=== PATIENT | female | born 1940 | race Caucasian/White ===

== ENCOUNTER 2025-07-07 06:23 | Day surgery (SDC) | payer MEDICARE ==
[2025-07-04 15:10] VITALS: BP 133/75; PULSE 130; RESP 17; TEMP 97.9
[2025-07-04 15:10] LABS: IMMATURE GRANULOCYTE ABSOLUTE 0.01 K/uL (0-1); NUCLEATED RED BLOOD CELLS 0.0 % (0.0-0.19); PLATELET COUNT (AUTO) 238 K/uL (130-400); RED BLOOD CELL COUNT(AUTO) 4.29 MIL/uL (4.00-5.50); RED CELL DISTRIBUTION WIDTH 13.2 % (11.0-15.5); WHITE BLOOD COUNT (AUTO) 6.1 K/uL (4.8-10.8)
[2025-07-04 15:18] LABS: CREATININE 0.9 mg/dL (0.5-1.0); GLOMERULAR FILTR. RATE CALC 63.0 mL/min (>90); GLUCOSE,RANDOM 131.0 mg/dL (70-105); SODIUM SERUM 144.0 mmol/L (136-145); UREA NITROGEN, BLOOD 14.0 mg/dL (7-18)
[2025-07-04 15:20] LABS: INR 1.01 (0.85-1.15)
[2025-07-07] VITALS (16 sets, daily range): BP systolic 105–131; BP diastolic 55–85; PULSE 117–135; RESP 14–22; TEMP 97.1–97.2
[~2025-07-07] VITALS: Ht 160 cm; Wt 70.3 kg
[~2025-07-07 06:23] MED LIST: ALEN70TA80 PO; ASCO500C19 PO; ASPI-1146 PO; B6/F1CAP PO; LIRA0.6P SQ; LISI20TA24 PO; MAGN400C PO; MULT-660 PO; UBID200C18 PO; VERA120T92 PO; VIT1CAPS5 PO
[2025-07-07] MEDS: 0.9%NACL 1000ML 1,000 ML IV SCH (07:06)
--- NOTE | 2025-07-07 07:55 | NUR ---
DENIZ: O2 @ 6L/NC. LIDOCAINE VISCOUS 2% PO GIVEN PER ORDERS. TIME OUT DONE @ 07:59 AM WITH NO PROBLEMS. VERSED 2 MG IV AND FENTANYL 25MCG IV GIVEN FOR SEDATION ORDERED. SCOPE INSERTED AT 08:04 WITH NO DIFFICULTY. COMPLETED AT 08:08 AM. PT TOLERATED PROCEDURE WELL. DR MCKAY OUT OF ROOM AT 08:20 AM.
[2025-07-07] MEDS: LIDOCAINE HCL 2% VISCOUS 15 ML UDCUP PO ONE (08:21)
[2025-07-07] MEDS: MIDAZOLAM HCL 1 MG/ML 2ML VIAL IVP ONE (08:21)
--- NOTE | 2025-07-07 08:26 | PRN ---
Transesophageal ECHO procedure note July 07/2025 Preprocedure diagnosis atrial flutter with two-to-one conduction Postprocedure diagnosis atrial flutter with two-to-one conduction thrombus in the left atrial appendage After informed consent the patient received 2 mg of Versed and 25 mg of fentanyl to achieve adequate level of conscious sedation. She had continuous O2 saturati on monitoring noninvasive heart rate rhythm and blood pressure monitoring throughout the procedure. The scope was passed without difficulty in the heart was imaged in multiple planes. Patient has thrombus present in the left atrial appendage. smoke was noted in the left atrium consistent with prothrombotic state. The mitral valve appears normal there was mild moderate +mitral regurgitation. The tricuspid valve is a trileaflet valve and opens well. There was no evidence of aortic insufficiency. The intra-atrial septum appears intact by Doppler exam. The tricuspid valve appears normal. The pulmonic valve leaflets appear thickened. The descending aorta shows some calcification consistent with atherosclerosis but no ulcerated or mobile plaques. There was no pericardial effusion. Postprocedure orders given. The entire procedure was well tolerated without complications. Report dictated by BHARATH Vyas MD, MD Jul 07, 2025 08:26
[2025-07-07] MEDS ORDERED: VERA180T61 PO (08:28)
--- NOTE | 2025-07-07 08:34 | HMCSR ---
APPROVED REPORT EXAM: Transesophageal echocardiogram with color flow Doppler. INDICATION ICD: Atrial Fibrillation Reason For Test : Rule out Intracardiac Thrombus. PROCEDURE After obtaining informed consent, patient underwent transesophageal echo in the day pt 15. 15 mL 2% Viscous Lidocaine was given as a topical anesthetic prior to the administration of the consc ious sedation. Type of Sedation: Please refer to medication administration record. Sedation was administered by Archana KELLEY . Sedation was achieved with Please refer to medication administration record. intravenously. Transesophageal probe was inserted and advanced into esophagus without difficulty by James Liang MD . DENIZ was performed and images were obtained, probe was removed without complications. Throughout the procedure, the blood pressure, pulse oximetry, cardiac rhythm, and rate were monitored . Left Ventricle The left ventricle is normal size. Mild concentric left ventricular hypertrophy. LVEF is 50-55%. The left ventricular diastolic function is Indeterminate Right Ventricle The right ventricle is normal size. The right ventricular systolic function is normal. Atria The left atrium size is mildly dilated. Left atrial appendage thrombus noted. Spontaneous contrast in left atrium. No evidence of PFO/ASD by color Doppler. The right atrium size is normal. Aortic Valve Aortic valve is trileaflet, milldy thickened and opens well. Trace of aortic regurgitation is present . There is no aortic valvular stenosis. Mitral Valve The mitral valve is normal in structure. There is mild mitral valve regurgitation noted. There is no mitral valve stenosis. Tricuspid Valve The tricuspid valve opens well. There is no tricuspid valve regurgitation noted. Pulmonic Valve Pulmonic valve is not well visualized but appears mildly thickened. There is no pulmonic valvular reg urgitation. Great Vessels The aortic root is normal in size. Ascending aorta appears normal in size. Descending aorta appears n ormal in size Pericardium There is no pericardial effusion. Conclusion Mild concentric left ventricular hypertrophy. LVEF is 50-55%. No evidence of PFO/ASD by color Doppler. The left atrium size is mildly dilated. Left atrial appendage thrombus noted. Spontaneous contrast i n left atrium. There is mild mitral valve regurgitation noted.
--- NOTE | 2025-07-07 18:43 | EKG ---
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
== END 2025-07-07 09:25 | disposition home or self-care (01) ==
LOC: DAH 06:23
PROVIDERS: ATTEND Internal Medicine Cardiovascular Disease
DX: I48.3 Typical atrial flutter (principal); I34.0 Nonrheumatic mitral (valve) insufficiency; I10 Essential (primary) hypertension; E11.9 Type 2 diabetes mellitus without complications; I48.91 Unspecified atrial fibrillation; I70.0 Atherosclerosis of aorta; I51.3 Intracardiac thrombosis, not elsewhere classified; Z88.1 Allergy status to other antibiotic agents; Z88.5 Allergy status to narcotic agent; Z88.8 Allergy status to other drugs, medicaments and biological substances; Z90.49 Acquired absence of other specified parts of digestive tract; Z90.89 Acquired absence of other organs; Z90.710 Acquired absence of both cervix and uterus; Z90.12 Acquired absence of left breast and nipple; Z79.01 Long term (current) use of anticoagulants; Z98.49 Cataract extraction status, unspecified eye; Z79.899 Other long term (current) drug therapy
CPT/HCPCS: 80048; 85025; 85610; 85730; 36415; 99152; 82948; 93325; 93312; 93005; J3010; J7030; J2250; A4615; A4215; A4223 ×3; A4657; A7002; A4222; A4221; A4663; A4216; A4606; J2312; J3490; G0500

== ENCOUNTER 2025-09-02 06:45 | Day surgery (SDC) | payer MEDICARE ==
[2025-08-26 08:45] LABS: IMMATURE GRANULOCYTE ABSOLUTE 0.02 K/uL (0-1); NUCLEATED RED BLOOD CELLS 0.0 % (0.0-0.19); PLATELET COUNT (AUTO) 225 K/uL (130-400); RED BLOOD CELL COUNT(AUTO) 4.44 MIL/uL (4.00-5.50); RED CELL DISTRIBUTION WIDTH 13.5 % (11.0-15.5); WHITE BLOOD COUNT (AUTO) 5.3 K/uL (4.8-10.8)
[2025-08-26 08:51] LABS: CREATININE 0.6 mg/dL (0.5-1.0); GLOMERULAR FILTR. RATE CALC 88.0 mL/min (>90); GLUCOSE,RANDOM 162.0 mg/dL (70-105); SODIUM SERUM 136.0 mmol/L (136-145); UREA NITROGEN, BLOOD 15.0 mg/dL (7-18)
[2025-08-26 09:01] LABS: INR 1.06 (0.85-1.15)
[2025-08-26 09:09] VITALS: BP 111/66; PULSE 80; RESP 18; TEMP 97.9
[~2025-09-02] VITALS: Ht 157.5 cm; Wt 70.3 kg
[~2025-09-02 06:45] MED LIST changes: +APIX5TAB PO; +AREDS2 PO; -ASPI-1146 PO; -B6/F1CAP PO; +FOLI1 PO; -LIRA0.6P SQ; -MULT-660 PO; +NEURIVA PO; +ONE A DAY WOMENS PO; -VERA120T92 PO; +VERE240SR PO; -VIT1CAPS5 PO; +[UNRECOGNIZED DRUG - OTHER] PO
[2025-09-02] MEDS ORDERED: 0.9%NACL 1000ML 1,000 ML IV SCH (07:30)
[2025-09-02] MEDS ORDERED: MIDAZOLAM HCL 1 MG/ML 2ML VIAL IVP ONE ×3 (07:30)
[2025-09-02 08:00] VITALS: BP 121/70; PULSE 135; RESP 14; TEMP 97
[2025-09-02] MEDS ORDERED: LIDOCAINE HCL 2% VISCOUS 15 ML UDCUP PO ONE (08:00)
[2025-09-02 09:00] VITALS: BP 118/68; PULSE 130; RESP 16; TEMP 97.3
--- NOTE | 2025-09-02 09:01 | PN ---
[facility] Cardiology Progress Note CARDIOLOGY PROGRESS NOTE SEPTEMBER 02, 2025 This patient has a history of persistent atrial flutter. Previous attempts at cardioversion were unsuccessful as a thrombus was found in the left atrial appendage on transesophageal echo. She has a history of multiple intolerances to anticoagulants but is currently tolerating Eliquis and has been anticoagulated for proximally six weeks. Was scheduled today for again transesophageal guided cardioversion however when obtaining venous access she has developed a large hematoma in the right antecubital space. Pressure has been applied and we will apply a pressure dressing. I have canceled the procedure and we will reassess her in my office in 24 hours. She had a similar problem on her previous attempt with IV access that again resulted in a large hematoma in her right forearm. View of this when we reschedule her procedure I will schedule her for a central line placement for venous access before proceeding with transesophageal echo guided cardioversion. BHARATH MCKAY MD Sep 02, 2025 09:00
--- NOTE | 2025-09-02 09:23 | NUR ---
Ankit ALLEN unable to initiate PIV for procedure. Patient poorly tolerated procedure. US used. Arterial site inadvertently started. Venous access successful but not able to be used as arterial site developed egg sized hematoma. Both removed. Hematoma reduced with manual pressure adequately. Light pressure dressing applied. Dr Wallis to assess in room. Fully updated. He decided to abort procedure and reschedule at a later date. Patient & in agreement. ST remains with VS wnl. Patient denies pain or discomfort. No bleeding to Right AC site. Breakfast tray provided to Patient and . Awaiting Dr Wallis to come back and release Patient soon. Nurse Utilization Management Nurse, Willi updated in full.
--- NOTE | 2025-09-02 10:34 | EKG ---
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
--- NOTE | 2025-09-02 10:38 | NUR ---
DIFFUSE DISCOLORATION AROUND THE BRUISED SITE. MILD SWELLING EVIDENT. MARKED AREA FOR TRACKING PURPOSES. AWAITING DR. MCKAY FOR DISCHARGE.
[2025-09-02] MEDS ORDERED: [UNRECOGNIZED DRUG - CODE] PO (11:59)
--- NOTE | 2025-09-02 12:01 | NUR ---
Full and complete discharge instructions given to Patient and Family both verbally and in writing. Tolerated fluids and voided in bathroom. W/C to POV with Family to home. No changes to site right AC.
--- NOTE | 2025-09-02 12:12 | NUR ---
Called new RX [facility]
== END 2025-09-02 12:05 | disposition home or self-care (01) ==
LOC: DAH 06:45
PROVIDERS: ATTEND Internal Medicine Cardiovascular Disease
DX: I48.19 Other persistent atrial fibrillation (principal); Z53.8 Procedure and treatment not carried out for other reasons; I23.6 Thrombosis of atrium, auricular appendage, and ventricle as current complications following acute myocardial infarction; E11.9 Type 2 diabetes mellitus without complications; I10 Essential (primary) hypertension; Z90.49 Acquired absence of other specified parts of digestive tract; Z90.710 Acquired absence of both cervix and uterus; Z82.49 Family history of ischemic heart disease and other diseases of the circulatory system; Z88.1 Allergy status to other antibiotic agents; Z88.5 Allergy status to narcotic agent; Z79.899 Other long term (current) drug therapy; Z98.890 Other specified postprocedural states
CPT/HCPCS: 80048; 85025; 85610; 85730; 36415; 82948; 93005; A4223 ×4; J3010; J2250 ×2; A4215 ×2; A4657; A4222; A4221; A4663; A4216; A6206; A4606; J2312; J3490